=== PATIENT | female | born 1970 | race Caucasian/White ===

== ENCOUNTER 2017-01-10 13:49 | Emergency (ER) | payer OTHER ==
[~2017-01-10] VITALS: Wt 80.0 kg
[~2017-01-10 13:49] MED LIST: HYDR-3498 PO
[2017-01-10] MEDS ORDERED: KETOROLAC 30 MG INJ IV STA (14:38)
[2017-01-10] MEDS ORDERED: SOD CHLORIDE 0.9% 1,000 ML IV STA (14:38)
[2017-01-10 15:11] LABS: BASOPHILS % 0.6 % (0.0-2.0); EOSINOPHILS # 0.1 10^3/ul (0.0-0.5); EOSINOPHILS % 1.7 % (0.0-7.0); HEMATOCRIT 40.6 % (37.0-47.0); HEMOGLOBIN 13.5 g/dl (12.0-16.0); LYMPHOCYTES # 2.2 10^3/ul (0.8-2.9); LYMPHOCYTES % 30.2 % (15.0-51.0); MEAN CORPUSCULAR HEMOGLOBIN 27.7 pg (29.0-33.0); MEAN CORPUSCULAR HGB CONC 33.3 g/dl (32.0-37.0); MEAN CORPUSCULAR VOLUME 83.2 fl (82.0-101.0); MEAN PLATELET VOLUME 9.9 fl (7.4-10.4); MONOCYTE # 0.5 10^3/ul (0.3-0.9); MONOCYTES % 6.2 % (0.0-11.0); NEUTROPHIL # 4.4 10^3/ul (1.6-7.5); NEUTROPHILS % 60.9 % (39.0-77.0); PLATELET COUNT 275 10^3/UL (140-415); RED BLOOD COUNT 4.88 10^6/ul (4.20-5.40); WHITE BLOOD COUNT 7.2 10^3/ul (4.8-10.8)
[2017-01-10 15:18] LABS: ADD UMIC YES; UR ASCORBIC ACID 40 mg/dL (NEGATIVE); UR BILIRUBIN (Dip) NEGATIVE (NEGATIVE); UR BLOOD (Dip) NEGATIVE (NEGATIVE); UR CLARITY SLIGHTLY CLOUDY (CLEAR); UR COLOR YELLOW (YELLOW); UR GLUCOSE (Dip) 2+ mg/dL (NEGATIVE); UR KETONES (Dip) NEGATIVE (NEGATIVE); UR LEUKOCYTE ESTERASE (Dip) 3+ Leu/ul (NEGATIVE); UR NITRITE (Dip) NEGATIVE (NEGATIVE); UR RBC 4 /HPF (0-5); UR SPECIFIC GRAVITY (Dip) 1.009 (1.003-1.030); UR SQUAMOUS EPITHELIAL CELL FEW /HPF (FEW); UR TOTAL PROTEIN (Dip) NEGATIVE (NEGATIVE); UR UROBILINOGEN (Dip) NEGATIVE (NEGATIVE)
[2017-01-10 15:30] LABS: ALBUMIN 4.6 g/dl (3.3-4.9); ALBUMIN/GLOBULIN RATIO 1.58; BILIRUBIN,INDIRECT 0.2 mg/dl (0-1.1); BILIRUBIN,TOTAL 0.2 mg/dl (0.2-1.3); CALCIUM 9.6 mg/dl (8.4-10.2); CREATININE 0.56 mg/dl (0.44-1.00); POTASSIUM 4.2 mmol/L (3.5-5.1); TOTAL PROTEIN 7.5 g/dl (6.1-8.1)
--- NOTE | 2017-01-10 16:55 | RADRPT ---
PROCEDURE: CT Abdomen and Pelvis without contrast. CLINICAL INDICATION: Abdominal pain. TECHNIQUE: CT scan of the abdomen and pelvis without contrast was performed on a multidetector hig h-resolution CT scanner. Coronal and sagittal reformatted images were obtained from the axial [facility] images. Images were reviewed on a high-resolution PACS workstation. The total exam CTDI equals 21. 5 mGy and the total exam DLP equals 1149 mGy-cm. COMPARISON: None. FINDINGS: CT abdomen: The lung bases are clear. The heart size is normal. No pericardial effusion identified. The liver measures 17 cm with low density and focal areas of isodensity, consistent with fatty infil tration and focal fatty sparing.. No liver mass identified. The gallbladder is decompressed and not well evaluated.. There is no intrahepatic or extrahepatic biliary dilatation. The spleen is normal in size. No focal splenic abnormality identified. No gross abnormality of the stomach is identified. The pancreas is unremarkable. The adrenal glands appear normal. The kidneys are unremarkable. There is no evidence of renal mass, renal calculi or hydronephrosis. The aorta is of normal caliber. No adenopathy identified. The bowel and mesentery are unremarkable. The appendix appears normal. CT pelvis: There is a 5 cm cystic structure in the left adnexa. The pelvic sidewalls and inguinal regions are clear. The sigmoid colon and rectum are unremarkable. No adenopathy, free fluid or inflammatory change identified. The osseous structures are unremarkable. No osteolytic or osteoblastic lesion is detected. 1 cm rounded low metallic density is seen in the pelvic cul-de-sac IMPRESSION: 1. No mass, lymphadenopathy, or focal acute inflammatory process is identified. 2. 4 x 5 cm cystic structure in the left adnexa, likely ovarian cyst. This can be further clarifie d with pelvic ultrasound. 3. Hepatomegaly with fatty infiltration of the liver and focal fatty sparing. 4. 1 cm round hollow metallic density in the pelvic cul-de-sac suggests drop metallic clip. Correl ate with surgical history. If there is no surgical history, this could represent soft tissue calcif ication. RPTAT: QQ .Siva Vasquez MD, MD Date Time Electronically viewed and signed by .Siva Vasquez MD, on 01/10/2017 16:55 .Humberto
--- NOTE | 2017-01-10 19:17 | RADRPT ---
PROCEDURE: US Pelvis CLINICAL INDICATION: Pelvic pain. TECHNIQUE: Sonographic evaluation of the pelvis was performed utilizing both transabdominal and tr ansvaginal technique. Curved array transabdominal transducer technique as well as a high frequency endovaginal probe was utilized. Images were reviewed on the high-resolution PACS workstation. COMPARISON: No prior studies are available for comparison. FINDINGS: The uterus is normal in size, echogenicity, and morphology, measuring 10.7 x 8.4 x 7.1 cm. Heterogeneous isoechoic mass is seen in the posterior body of uterus which measures 2.2 x 2.0 x 2.4 cm, likely a fibroid. The uterus is anteverted in normal position. The endometrium measures 7.7 mm in thickness. The normal trilaminar stripe of the endometrium is preserved. The right ovary was not seen. The left ovary measures 5.5 x 4.8 x 5.0 cm. Complex cyst with uniform internal debris is seen in the left ovary, measuring 4.7 x 3.7 x 3.6 cm The ovaries are symmetric in size, echogenicity, and morphology. There are no adnexal masses. There is no significant free fluid in the pelvis. IMPRESSION: 1. Nonvisualization of right ovary. 2. 4.7 cm complex cyst in the left ovary with internal debris and no internal blood flow. Findings suggest hemorrhagic cyst. Follow-up exam in 8-12 weeks is suggested to assess for resolution. 3. 2.4 cm isoechoic mass in the posterior body of uterus, likely a fibroid. RPTAT: HLDM .Siva Vasquez MD, Date Time Electronically viewed and signed by .Siva Vasquez MD, MD on 01/10/2017 19:17 .M/
[2017-01-10] MEDS ORDERED: IBUP-1542 PO (19:29)
[2017-01-10] MEDS ORDERED: TRAM50TA2 PO (19:30)
--- NOTE | 2017-01-10 19:33 | ERD ---
ER Documentation Chief Complaint Date/Time DATE: 01/10/17 TIME: 19:32 Chief Complaint low back pain and abdominal pain for the past month, mild abd distended HPI This is a 46-year-old female that presents to the ER with multiple complaints. Patient states that she has had severe abdominal bloating for the last month. Patient is also complaining of generalized abdominal pain and lower back pain. Patient denies any trauma to the back she denies any urinary bowel incontinence. She denies any urinary frequency or dysuria. Patient does admit to nausea however denies vomiting or diarrhea. Patient denies any fevers or chills. Abdominal pain and back pain are described as severe and constant, throbbing quality. Patient has not tried anything for the pain. Patient denies any chest pain or shortness of breath. ROS 12 point review of systems was done, all negative except per HPI. Medications Home Meds Active Scripts Tramadol HCl (Tramadol HCl) 50 Mg Tablet, 50 MG PO Q4 Y for PAIN, #20 TAB Prov:ALYSIA ENAMORADO 01/10/17 Ibuprofen* (Motrin*) 600 Mg Tab, 600 MG PO Q6, #30 TAB Prov:ALYSIA ENAMORADO 01/10/17 Hydrocodone Bit-Acetaminophen* ([place]*) 5-325 Mg Tab, 1 TAB PO Q4H Y for PAIN, # 20 TAB Prov:VALENTINA MANN PA-C 02/12/15 Allergies Allergies: Coded Allergies: No Known Allergy (Unverified , 06/20/14) PMhx/Soc History of Surgery: Yes () Hx Alcohol Use: No Hx Substance Use: No Hx Tobacco Use: No Smoking Status: Never smoker Physical Exam Vitals Vital Signs Date Time Temp Pulse Resp B/P Pulse Ox O2 Delivery O2 Flow Rate FiO2 01/10/17 13:52 98.5 89 21 140/78 98 Physical Exam Const: [] Head: Atraumatic Eyes: Normal Conjunctiva ENT: Normal External Ears, Nose and Mouth. Neck: Full range of motion..~ No meningismus. Resp: Clear to auscultation bilaterally Cardio: Regular rate and rhythm, no murmurs Abd: Soft, non tender, non distended. Normal bowel sounds Skin: No petechiae or rashes Back: No midline or flank tenderness Ext: No cyanosis, or edema Neur: Awake and alert Psych: Normal Mood and Affect Result Diagram: 01/10/17 1450 01/10/17 1450 Results 24 hrs Laboratory Tests Test 01/10/17 14:50 White Blood Count 7.210^3/ul Red Blood Count 4.8810^6/ul Hemoglobin 13.5g/dl Hematocrit 40.6% Mean Corpuscular Volume 83.2fl Mean Corpuscular Hemoglobin 27.7pg Mean Corpuscular Hemoglobin Concent 33.3g/dl Red Cell Distribution Width 13.0% Platelet Count 78488^3/UL Mean Platelet Volume 9.9fl Neutrophils % 60.9% Lymphocytes % 30.2% Monocytes % 6.2% Eosinophils % 1.7% Basophils % 0.6% Nucleated Red Blood Cells % 0.0/100WBC Neutrophils # 4.410^3/ul Lymphocytes # 2.210^3/ul Monocytes # 0.510^3/ul Eosinophils # 0.110^3/ul Basophils # 0.010^3/ul Nucleated Red Blood Cells # 0.010^3/ul Urine Color YELLOW Urine Clarity SLIGHTLY CLOUDY Urine pH 8.0 Urine Specific [place] 1.009 Urine Ketones NEGATIVEmg/dL Urine Nitrite NEGATIVEmg/dL Urine Bilirubin NEGATIVEmg/dL Urine Urobilinogen NEGATIVEmg/dL Urine Leukocyte Esterase 3+Iain/ul Urine Microscopic RBC 4/HPF Urine Microscopic WBC 6/HPF Urine Squamous Epithelial Cells FEW/HPF Urine Hemoglobin NEGATIVEmg/dL Urine Glucose 2+mg/dL Urine Total Protein NEGATIVEmg/dl Sodium Level 141mmol/L Potassium Level 4.2mmol/L Chloride Level 100mmol/L Carbon Dioxide Level 25mmol/L Anion Gap 20 Blood Urea Nitrogen 9mg/dl Creatinine 0.56mg/dl Glucose Level 153mg/dl Calcium Level 9.6mg/dl Total Bilirubin 0.2mg/dl Direct Bilirubin 0.00mg/dl Indirect Bilirubin 0.2mg/dl Aspartate Amino Transf (AST/SGOT) 35IU/L Alanine Aminotransferase (ALT/SGPT) 61IU/L Alkaline Phosphatase 76IU/L Total Protein 7.5g/dl Albumin 4.6g/dl Globulin 2.90g/dl Albumin/Globulin Ratio 1.58 Lipase 71U/L Current Medications Medications (Trade) Dose Ordered Sig/Tasneem Route PRN Reason Start Time Stop Time Status Last Admin Dose Admin Sodium Chloride (NS) 1,000 ml @ 1,000 mls/hr Q1H STAT IV 01/10/17 14:38 01/10/17 15:37 DC 01/10/17 14:54 Ketorolac Tromethamine (Toradol) 30 mg ONCE STAT IV 01/10/17 14:38 01/10/17 14:39 DC 01/10/17 14:54 [place] [id number] Radiology Main Line: [phone] DIAGNOSTIC IMAGING REPORT Patient: ALMA ANTHONY : 1970 Age: 46 Sex: F MR #: [id number] DOS: 01/10/17 0000 Ordering MD: ALYSIA ENAMORADO PA-C Location: [facility] Room/Bed: PROCEDURE: US Pelvis CLINICAL INDICATION: Pelvic pain. TECHNIQUE: Sonographic evaluation of the pelvis was performed utilizing both transabdominal and transvaginal technique. Curved array transabdominal transducer technique as well as a high frequency endovaginal probe was utilized. Images were reviewed on the high-resolution PACS workstation. COMPARISON: No prior studies are available for comparison. FINDINGS: The uterus is normal in size, echogenicity, and morphology, measuring 10.7 x 8.4 x 7.1 cm. Heterogeneous isoechoic mass is seen in the posterior body of uterus which measures 2.2 x 2.0 x 2.4 cm, likely a fibroid. The uterus is anteverted in normal position. The endometrium measures 7.7 mm in thickness. The normal trilaminar stripe of the endometrium is preserved. The right ovary was not seen. The left ovary measures 5.5 x 4.8 x 5.0 cm. Complex cyst with uniform internal debris is seen in the left ovary, measuring 4.7 x 3.7 x 3.6 cm The ovaries are symmetric in size, echogenicity, and morphology. There are no adnexal masses. There is no significant free fluid in the pelvis. IMPRESSION: 1. Nonvisualization of right ovary. 2. 4.7 cm complex cyst in the left ovary with internal debris and no internal blood flow. Findings suggest hemorrhagic cyst. Follow-up exam in 8-12 weeks is suggested to assess for resolution. 3. 2.4 cm isoechoic mass in the posterior body of uterus, likely a fibroid. RPTAT: HLDM .Siva Vasquez MD, MD Date Time Electronically viewed and signed by .Siva Vasquez MD, MD on 01/10/2017 19: 17 .M/ CC: ALYSIA ENAMORADO Procedures/MDM Differential Diagnosis: GERD, gastritis, peptic ulcer disease, pancreatitis, cholecystitis, choledocholithiasis, biliary colic, cholangitis, Unmo-Ycma-Vsgbgc , ACS/SD, Pnuemonia. At this time etiology of patient's abdominal bloating, patient did have an ovarian cyst, I advised patient to follow-up on this as ovarian malignancy can cause abdominal bloating. At this time there is no evidence of ovarian torsion. Patient's blood work was negative for leukocytosis , transaminitis, pancreatitis, electrolyte imbalance. Patient felt significantly better after Toradol in the ER. She was also found to have fibroids which may also contribute to patient's abdominal pain. There is no evidence of urinary tract infection and patient is asymptomatic. Suspicion for pyelonephritis is low. Patient is afebrile and well-appearing and does not have a history of fevers or chills suspicion for sepsis is low. In regards to patient's lower back pain Differential Diagnosis includes but is not limited to back strain, vertebral fracture, epidural abscess, cauda equina, herniated disc , AAA rupture, kidney stones, UTI, pyelonephritis. Patient likely acute on chronic back pain going on for the last month. She does not have any history of trauma and she is neurovascularly intact and has full range of motion of bilateral lower extremities. Patient does not have history of urinary bowel incontinence or saddle like anesthesia I doubt cauda equina. Patient is to follow-up with her primary care doctor within 1-2 days and seen OB as soon as possible. I shared my medical decision making with the patient she understands and agrees with plan. She should return to ER sooner if symptoms worsen. Departure Diagnosis: Primary Impression: Fibroids Additional Impression: Ovarian cyst Condition: Stable Patient Instructions: Ovarian Cyst Additional Instructions: Call your primary care doctor TOMORROW for an appointment during the next 1-2 days.See the doctor sooner or return here if your condition worsens before your appointment time. ALYSIA ENAMORADO Jan 10, 2017 19:33
== END 2017-01-10 19:38 | disposition home or self-care (01) ==
LOC: FTE 13:49
DX: D25.9 Leiomyoma of uterus, unspecified (principal); N83.202 Unspecified ovarian cyst, left side; R10.2 Pelvic and perineal pain
CPT/HCPCS: 36415; 74176; 76830; 76856; 80053; 81001; 83690; 85025; 96374; J1885; J7030; Z7502

== ENCOUNTER 2017-02-28 18:29 | Emergency (ER) | payer OTHER ==
[~2017-02-28] VITALS: Ht 160 cm; Wt 89.5 kg
[~2017-02-28 18:29] MED LIST changes: +IBUP-1542 PO; +TRAM50TA2 PO
[2017-02-28 18:32] VITALS: Ht 160 cm; Wt 89.5 kg
[2017-02-28 19:33] LABS: URINE BLOOD (Dip) POC 1+ (NEGATIVE)
[2017-02-28 20:09] LABS: ADD UMIC YES; UR ASCORBIC ACID NEGATIVE (NEGATIVE); UR BACTERIA FEW /HPF (NONE SEEN); UR BILIRUBIN (Dip) NEGATIVE (NEGATIVE); UR BLOOD (Dip) 1+ mg/dL (NEGATIVE); UR CLARITY CLEAR (CLEAR); UR COLOR STRAW (YELLOW); UR GLUCOSE (Dip) 3+ mg/dL (NEGATIVE); UR KETONES (Dip) NEGATIVE (NEGATIVE); UR LEUKOCYTE ESTERASE (Dip) NEGATIVE Leu/ul (NEGATIVE); UR NITRITE (Dip) NEGATIVE (NEGATIVE); UR RBC 1 /HPF (0-5); UR SPECIFIC GRAVITY (Dip) 1.002 (1.003-1.030); UR TOTAL PROTEIN (Dip) NEGATIVE (NEGATIVE); UR UROBILINOGEN (Dip) NEGATIVE (NEGATIVE)
[2017-02-28 20:58] VITALS: RESP 20; TEMP 98.2
--- NOTE | 2017-02-28 21:46 | ERD ---
ER Documentation Chief Complaint Date/Time DATE: 02/28/17 TIME: 21:44 Chief Complaint painful urination x 2 days, back pain HPI Patient is a 46-year-old female who presents to the ED with multiple complaints. Patient states that she has had dysuria and urgency and frequency for 2 days. She also complains of 5 years of chronic low back pain. She denies abdominal pain, nausea, vomiting or diarrhea. Patient is requesting an MRI of her low back. Patient also complains of 6 months of on and off sweats. And mild fatigue. Denies new onset of trauma or back pain. Denies new onset of symptoms besides urgency and frequency. She has had UTIs in the past. Denies leg pain or leg swelling, denies Chest pain or cough or shortness of breath. ROS All systems reviewed and are negative except as per history of present illness. Medications Home Meds Active Scripts Tramadol HCl (Tramadol HCl) 50 Mg Tablet, 50 MG PO Q4 Y for PAIN, #20 TAB Prov:ALYSIA ENAMORADO 01/10/17 Ibuprofen* (Motrin*) 600 Mg Tab, 600 MG PO Q6, #30 TAB Prov:ALYSIA ENAMORADO 01/10/17 Hydrocodone Bit-Acetaminophen* ([place]*) 5-325 Mg Tab, 1 TAB PO Q4H Y for PAIN, # 20 TAB Prov:VALENTINA MANN PA-C 02/12/15 Allergies Allergies: Coded Allergies: No Known Allergy (Unverified , 06/20/14) PMhx/Soc Medical and Surgical Hx: pt denies Medical Hx History of Surgery: Yes () Anesthesia Reaction: No Hx Neurological Disorder: No Hx Respiratory Disorders: No Hx Cardiac Disorders: No Hx Psychiatric Problems: No Hx Alcohol Use: No Hx Substance Use: No Hx Tobacco Use: No Smoking Status: Never smoker FmHx Family History: No coronary disease, No diabetes, No other Physical Exam Vitals Vital Signs Date Time Temp Pulse Resp B/P Pulse Ox O2 Delivery O2 Flow Rate FiO2 02/28/17 20:58 98.2 20 100 02/28/17 18:32 98.2 99 20 139/87 100 Physical Exam GENERAL: Well-developed, well-nourished female. Appears in no acute distress. HEAD: Normocephalic, atraumatic. EYES: Pupils are equally reactive bilaterally. EOMs grossly intact. No conjunctival erythema. ENT: Moist mucous membranes. No uvula deviation. No kissing tonsils. No exudates. NECK: Supple. No lymphadenopathy or thyromegaly. No meningismus. negative kernig. negative brudinski. LUNG: Clear to auscultation bilaterally. No rhonchi, wheezing, rales or coarse breath sounds. HEART: Regular rate and rhythm. No murmurs, rubs or gallops. ABDOMEN: No scars, ecchymosis or rashes noted. Soft, nontender, and nondistended. Positive bowel sounds in all four quadrants. No rebound tenderness , no guarding. (-) McBurneys point tenderness. No CVA tenderness. BACK: No midline tenderness. Extremities: Equal pulses bilaterally. No peripheral clubbing, cyanosis or edema. No unilateral leg swelling. NEUROLOGIC: Alert and oriented. Moving all four extremities. 5/5 strength in all extremities. Normal speech. Steady gait. SKIN: Normal color. Warm and dry. No rashes or lesions. Capillary refill < 2 seconds Results 24 hrs Laboratory Tests Test 02/28/17 19:20 02/28/17 19:40 Urine Color STRAW Urine Clarity CLEAR Urine pH 7.0 Urine Specific [place] 1.002 Urine Ketones NEGATIVEmg/dL Urine Nitrite NEGATIVEmg/dL Urine Bilirubin NEGATIVEmg/dL Urine Urobilinogen NEGATIVEmg/dL Urine Leukocyte Esterase NEGATIVELeu/ul Urine Microscopic RBC 1/HPF Urine Microscopic WBC 1/HPF Urine Bacteria FEW/HPF Urine Hemoglobin 1+mg/dL Urine Glucose 3+mg/dL Urine Total Protein NEGATIVEmg/dl Bedside Urine pH (LAB) 6.0 Bedside Urine Protein (LAB) Negative Bedside Urine Glucose (UA) 0.25% Bedside Urine Ketones (LAB) Negative Bedside Urine Blood 1+ Bedside Urine Nitrite (LAB) Negative Bedside Urine Leukocyte Esterase (L Negative Procedures/MDM ER COURSE: I kept the patient and/or family informed of laboratory and diagnostic imaging results throughout the emergency room course. MEDICAL DECISION MAKING: This is a 46-year-old female who presents with dysuria and urgency 2 days. Vital signs were reviewed. Patient is afebrile. Patient is not hypoxic. She is nontoxic or ill-appearing. Patient's urinalysis does not show signs of infection she does not have leukocytes or nitrates. At this point I will not be treating the patient with antibiotics I have low suspicion for cystitis. Advised patient to follow-up with her primary care provider for her chronic issues. Copy of laboratory studies given to patient. Low suspicion for ovarian torsion, PID, tuboovarian abscess, ectopic , bowel obstruction , pyelonephritis, UTI, appendicitis, cervicitis, septic , molar , HELLP syndrome, preeclampsia, eclampsia, placenta previa, placenta abruptia. DISCHARGE: At this time, patient is stable for discharge and outpatient management with no new complaints during the ER course. Patient was sent home with copy of laboratory studies. Patient will be discharged home with instructions to recheck for new or worsening symptoms such as fever, nausea, weakness, LOC and to follow up with primary care in the next 1-2 days. Patient was advised to return to the ER for any new or worsening symptoms. Plan was discussed and patient and/or family understands and agrees. Home instructions were given. Departure Diagnosis: Primary Impression: Urinary frequency Condition: Stable Patient Instructions: Dysuria, Uncertain Cause (Adult) Additional Instructions: Call your primary care doctor TOMORROW for an appointment during the next 1-2 days.See the doctor sooner or return here if your condition worsens before your appointment time. NEVA LYNCH PA-C Feb 28, 2017 21:46
== END 2017-02-28 20:59 | disposition home or self-care (01) ==
LOC: FTE 18:29
DX: R35.0 Frequency of micturition (principal)
CPT/HCPCS: 81001; Z7502; 81003; 99283

== ENCOUNTER 2017-04-30 19:29 | Emergency (ER) | payer OTHER ==
[~2017-04-30] VITALS: Ht 154.9 cm; Wt 87.6 kg
[2017-04-30 19:40] VITALS: Ht 154.9 cm; Wt 87.6 kg
[2017-04-30] MEDS ORDERED: ONDANSETRON 4 MG INJ IV STA (21:27)
[2017-04-30] MEDS ORDERED: SOD CHLORIDE 0.9% 1,000 ML IV STA (21:27)
[2017-04-30] MEDS ORDERED: KETOROLAC 30 MG INJ IV STA (21:27)
[2017-04-30 22:27] LABS: BASOPHIL # 0.1 10^3/ul (0.0-0.1); BASOPHILS % 0.6 % (0.0-2.0); EOSINOPHILS # 0.1 10^3/ul (0.0-0.5); EOSINOPHILS % 1.1 % (0.0-7.0); HEMATOCRIT 42.3 % (37.0-47.0); LYMPHOCYTES # 3.6 10^3/ul (0.8-2.9); MEAN CORPUSCULAR HEMOGLOBIN 27.9 pg (29.0-33.0); MEAN CORPUSCULAR HGB CONC 33.1 g/dl (32.0-37.0); MEAN CORPUSCULAR VOLUME 84.4 fl (82.0-101.0); MEAN PLATELET VOLUME 9.4 fl (7.4-10.4); MONOCYTE # 0.5 10^3/ul (0.3-0.9); MONOCYTES % 5.6 % (0.0-11.0); NEUTROPHIL # 4.1 10^3/ul (1.6-7.5); NEUTROPHILS % 49.5 % (39.0-77.0); PLATELET COUNT 284 10^3/UL (140-415); RED BLOOD COUNT 5.01 10^6/ul (4.20-5.40); RED CELL DISTRIBUTION WIDTH 12.7 % (11.5-14.5); WHITE BLOOD COUNT 8.3 10^3/ul (4.8-10.8)
[2017-04-30 22:41] LABS: ADD UMIC YES; UR ASCORBIC ACID NEGATIVE (NEGATIVE); UR BACTERIA FEW /HPF (NONE SEEN); UR BILIRUBIN (Dip) NEGATIVE (NEGATIVE); UR BLOOD (Dip) 1+ mg/dL (NEGATIVE); UR CLARITY SLIGHTLY CLOUDY (CLEAR); UR COLOR YELLOW (YELLOW); UR GLUCOSE (Dip) 1+ mg/dL (NEGATIVE); UR KETONES (Dip) TRACE mg/dL (NEGATIVE); UR LEUKOCYTE ESTERASE (Dip) TRACE Leu/ul (NEGATIVE); UR NITRITE (Dip) NEGATIVE (NEGATIVE); UR RBC 1 /HPF (0-5); UR SPECIFIC GRAVITY (Dip) 1.012 (1.003-1.030); UR SQUAMOUS EPITHELIAL CELL FEW /HPF (FEW); UR TOTAL PROTEIN (Dip) NEGATIVE (NEGATIVE); UR UROBILINOGEN (Dip) NEGATIVE (NEGATIVE)
[2017-04-30] MEDS ORDERED: morphine 4 MG/ML VIAL IV STA (22:45)
[2017-04-30 22:51] LABS: ALBUMIN 4.9 g/dl (3.3-4.9); ALBUMIN/GLOBULIN RATIO 1.58; BILIRUBIN,INDIRECT 0.1 mg/dl (0-1.1); BILIRUBIN,TOTAL 0.1 mg/dl (0.2-1.3); CALCIUM 9.6 mg/dl (8.4-10.2); CREATININE 0.93 mg/dl (0.44-1.00); POTASSIUM 4.1 mmol/L (3.5-5.1)
--- NOTE | 2017-04-30 23:10 | RADRPT ---
PROCEDURE: CT abdomen and pelvis without intravenous contrast. CLINICAL INDICATION: Pain. TECHNIQUE: CT of the abdomen/pelvis was performed utilizing axial images with reconstructions in s agittal and coronal planes. The administered radiation dose is CTDI 21 mGy, DLP 1134 mGy-cm. One or more of the following dose reduction techniques were used: automated exposure control, adjustment of the mA and/or kV according to patient size and/or use of iterative reconstruction technique. DICOM images are available. COMPARISON: 01/10/2017 FINDINGS: Visualized Chest: The visualized lung bases are clear. Abdomen: The spleen, pancreas, gallbladder,and adrenal glands are unremarkable. The liver is markedly, dif fusely decreased in attenuation, compatible with hepatic steatosis. The kidneys are without hydronephrosis. No definite urinary calculi are seen. There is no evidence of bowel obstruction. The appendix is normal. No intra-abdominal free air is seen. There is no evidence of intra-abdominal adenopathy or free fluid. Pelvis: There is no evidence of pelvic adenopathy. The uterus and ovaries are without enlargement. The uri nary bladder is unremarkable. There is no pelvic free fluid. Osseous structures: Unremarkable. IMPRESSION: No acute findings. Hepatic steatosis. RPTAT: HIKT .Isael Gallagher MD, MD Date Time Electronically viewed and signed by .Isael Gallagher MD, on 04/30/2017 23:10 .T/
--- NOTE | 2017-05-01 00:59 | RADRPT ---
PROCEDURE: ULTRASOUND EVALUATION OF THE FEMALE PELVIS: CLINICAL INDICATION: 46-year of age, female. Pelvic pain . TECHNIQUE: Real-time sonographic images of the pelvis were obtained transabdominally and transvagina lly utilizing [place] scale, color, and Doppler imaging. COMPARISON: Pelvic ultrasound December 11, [address] abdomen pelvis April 30, 2017 FINDINGS: LMP: April 17, 2017 Uterus: Appearance: 2.6 cm mildly exophytic fibroid posterior uterine body is similar to prior exam. Myometr ium is otherwise normal. Position: Anteverted Size: 10 x 4.8 x 6.2 cm. (Volume 155 mL) Endometrial stripe: 0.3 cm . Echogenic focus in the endometrium is likely from prior intervention. Right ovary and adnexa: Right ovary is not visualized. Negative for evidence of a right adnexal mass. Left ovary and adnexa: Size: 2.9 x 1.7 x 2 cm. (Volume 4.9 mL) Appearance: 1 cm echogenic cyst likely a hemorrhagic follicle. Ovarian stroma is otherwise normal. A rterial flow present. Free fluid: None. IMPRESSION: 1. 2.6 cm uterine fibroid is similar to prior exam. 2. Small hemorrhagic follicle in the left ovary has decreased in size since prior ultrasound perform ed January 10, 2017 and is likely physiologic. 3. Right ovary is not visualized. Negative for evidence of a right adnexal mass. RPTAT: HCTS Physician Kareem Date Time Electronically viewed and signed by Physician Kareem on 05/01/2017 00:59 /
[2017-05-01] MEDS ORDERED: ONDA4TAB14 PO (01:10)
[2017-05-01] MEDS ORDERED: IBUP-1542 PO (01:10)
--- NOTE | 2017-05-01 01:20 | ERD ---
ER Documentation Chief Complaint Chief Complaint bib self, cc: cc: abdominal pain hx of overian cyst HPI Is a 46-year-old female with a history of hypertension and ovarian cyst who presents to the ED for concerns of bilateral pelvic pain 2 days. Patient states the pain is constant. Patient reports taking ibuprofen with no relief of symptoms. Patient reports nausea and vomiting 3, nonbloody nonbilious. Patient also states she has had diarrhea now for a week, nonbloody, nonmucousy. Patient denies any fevers or chills. Patient does report dysuria and burning pain with urination. Patient denies any frequency, urgency or hematuria. Patient denies any chest pain, shortness of breath, loss of consciousness. ROS All systems reviewed and are negative except as per history of present illness. Medications Home Meds Active Scripts Ondansetron (Ondansetron Odt) 4 Mg Tab.rapdis, 4 MG PO Q6H Y for NAUSEA AND/OR VOMITING, #10 TAB Prov:DEMETRIO ROQUE PA-C 05/01/17 Ibuprofen* (Motrin*) 600 Mg Tab, 600 MG PO Q6, #30 TAB Prov:DEMETRIO ROQUE PA-C 05/01/17 Tramadol HCl (Tramadol HCl) 50 Mg Tablet, 50 MG PO Q4 Y for PAIN, #20 TAB Prov:ALYSIA ENAMORADO 01/10/17 Ibuprofen* (Motrin*) 600 Mg Tab, 600 MG PO Q6, #30 TAB Prov:ALYSIA ENAMORADO 01/10/17 Hydrocodone Bit-Acetaminophen* ([place]*) 5-325 Mg Tab, 1 TAB PO Q4H Y for PAIN, # 20 TAB Prov:VALENTINA MANN PA-C 02/12/15 Allergies Allergies: Coded Allergies: No Known Allergy (Unverified , 06/20/14) PMhx/Soc History of Surgery: Yes () Anesthesia Reaction: No Hx Neurological Disorder: No Hx Respiratory Disorders: No Hx Cardiac Disorders: No Hx Psychiatric Problems: No Hx Alcohol Use: No Hx Substance Use: No Hx Tobacco Use: No Smoking Status: Never smoker Physical Exam Vitals Vital Signs Date Time Temp Pulse Resp B/P Pulse Ox O2 Delivery O2 Flow Rate FiO2 04/30/17 19:40 98.6 85 18 146/95 100 Physical Exam GENERAL: Well-developed, well-nourished female. Appears in no acute distress. HEAD: Normocephalic, atraumatic. EYES: Pupils are equally reactive bilaterally. EOMs grossly intact. No conjunctival erythema. ENT: Moist mucous membranes. No uvula deviation. No kissing tonsils. NECK: Supple. No meningismus. Normal range of motion of the neck. LUNG: Clear to auscultation bilaterally. No rhonchi, wheezing, rales or coarse breath sounds. HEART: Regular rate and rhythm. No murmurs, rubs or gallops. ABDOMEN: Soft, and nondistended. Tender to palpation bilateral lower abdominal quadrants. Positive bowel sounds in all four quadrants. No rebound tenderness, no guarding. (-) McBurney's point tenderness. No CVA tenderness. BACK: No midline tenderness. EXTREMITIES: Equal pulses bilaterally. No peripheral clubbing, cyanosis or edema. No unilateral leg swelling. NEUROLOGIC: Alert and oriented. Moving all four extremities without any difficulty. Normal speech. Steady gait. SKIN: Normal color. Warm and dry. No rashes or lesions. Result Diagram: 04/30/17221904/30/172219 Results 24 hrs Laboratory Tests Test 04/30/17 22:05 04/30/17 22:20 Urine Color YELLOW Urine Clarity SLIGHTLY CLOUDY Urine pH 5.0 Urine Specific [place] 1.012 Urine Ketones TRACEmg/dL Urine Nitrite NEGATIVEmg/dL Urine Bilirubin NEGATIVEmg/dL Urine Urobilinogen NEGATIVEmg/dL Urine Leukocyte Esterase TRACELeu/ul Urine Microscopic RBC 1/HPF Urine Microscopic WBC 4/HPF Urine Squamous Epithelial Cells FEW/HPF Urine Bacteria FEW/HPF Urine Hemoglobin 1+mg/dL Urine Glucose 1+mg/dL Urine Total Protein NEGATIVEmg/dl White Blood Count 8.310^3/ul Red Blood Count 5.0110^6/ul Hemoglobin 14.0g/dl Hematocrit 42.3% Mean Corpuscular Volume 84.4fl Mean Corpuscular Hemoglobin 27.9pg Mean Corpuscular Hemoglobin Concent 33.1g/dl Red Cell Distribution Width 12.7% Platelet Count 62372^3/UL Mean Platelet Volume 9.4fl Neutrophils % 49.5% Lymphocytes % 43.0% Monocytes % 5.6% Eosinophils % 1.1% Basophils % 0.6% Nucleated Red Blood Cells % 0.0/100WBC Neutrophils # 4.110^3/ul Lymphocytes # 3.610^3/ul Monocytes # 0.510^3/ul Eosinophils # 0.110^3/ul Basophils # 0.110^3/ul Nucleated Red Blood Cells # 0.010^3/ul Sodium Level 142mmol/L Potassium Level 4.1mmol/L Chloride Level 102mmol/L Carbon Dioxide Level 25mmol/L Anion Gap 19 Blood Urea Nitrogen 10mg/dl Creatinine 0.93mg/dl Glucose Level 95mg/dl Calcium Level 9.6mg/dl Total Bilirubin 0.1mg/dl Direct Bilirubin 0.00mg/dl Indirect Bilirubin 0.1mg/dl Aspartate Amino Transf (AST/SGOT) 47IU/L Alanine Aminotransferase (ALT/SGPT) 87IU/L Alkaline Phosphatase 78IU/L Total Protein 8.0g/dl Albumin 4.9g/dl Globulin 3.10g/dl Albumin/Globulin Ratio 1.58 Lipase 116U/L Current Medications Medications (Trade) Dose Ordered Sig/Tasneem Route PRN Reason Start Time Stop Time Status Last Admin Dose Admin Sodium Chloride (NS) 1,000 ml @ 1,000 mls/hr Q1H STAT IV 04/30/17 21:27 04/30/17 22:26 DC 04/30/17 22:11 Ondansetron HCl (Zofran Inj) 4 mg ONCE STAT IV 04/30/17 21:27 04/30/17 21:29 DC 04/30/17 22:11 Ketorolac Tromethamine (Toradol) 30 mg ONCE STAT IV 04/30/17 21:27 04/30/17 21:29 DC 04/30/17 22:11 Morphine Sulfate (morphine) 4 mg ONCE STAT IV 04/30/17 22:45 04/30/17 22:46 DC 04/30/17 22:50 Procedures/MDM ED COURSE: The patient was stable throughout ED course. I kept the patient and/or family informed of laboratory and diagnostic imaging results throughout the ED course. DIAGNOSTIC IMAGING: Read by radiologist. Patient: ALMA ANTHONY : 1970 Age: 46 Sex: F MR #: [id number] DOS: 04/30/172126 Ordering MD: DEMETRIO ROQUE PA-C Location: [facility] Room/Bed: PROCEDURE: CT abdomen and pelvis without intravenous contrast. CLINICAL INDICATION: Pain. TECHNIQUE: CT of the abdomen/pelvis was performed utilizing axial images with reconstructions in sagittal and coronal planes. The administered radiation dose is CTDI 21 mGy, DLP 1134 mGy-cm. One or more of the following dose reduction techniques were used: automated exposure control, adjustment of the mA and/or kV according to patient size and/or use of iterative reconstruction technique. DICOM images are available. COMPARISON: 01/10/2017 FINDINGS: Visualized Chest: The visualized lung bases are clear. Abdomen: The spleen, pancreas, gallbladder,and adrenal glands are unremarkable. The liver is markedly, diffusely decreased in attenuation, compatible with hepatic steatosis. The kidneys are without hydronephrosis. No definite urinary calculi are seen. There is no evidence of bowel obstruction. The appendix is normal. No intra- abdominal free air is seen. There is no evidence of intra-abdominal adenopathy or free fluid. Pelvis: There is no evidence of pelvic adenopathy. The uterus and ovaries are without enlargement. The urinary bladder is unremarkable. There is no pelvic free fluid. Osseous structures: Unremarkable. IMPRESSION: No acute findings. Hepatic steatosis. RPTAT: HIKT .Isael Gallagher MD, MD Date Time Electronically viewed and signed by .Isael Gallagher MD, on 04/30/2017 23:10 .T/ CC: DEMETRIO ROQUE PA-C Patient: ALMA ANTHONY : 1970 Age: 46 Sex: F MR #: [id number] DOS: 04/30/172126 Ordering MD: DEMETRIO ROQUE PA-C Location: [facility] Room/Bed: PROCEDURE: ULTRASOUND EVALUATION OF THE FEMALE PELVIS: CLINICAL INDICATION: 46-year of age, female. Pelvic pain . TECHNIQUE: Real-time sonographic images of the pelvis were obtained transabdominally and transvaginally utilizing washing[place] scale, color, and Doppler imaging. COMPARISON: Pelvic ultrasound December 11, [address] abdomen pelvis April FINDINGS: LMP: April 17, 2017 Uterus: Appearance: 2.6 cm mildly exophytic fibroid posterior uterine body is similar to prior exam. Myometrium is otherwise normal. Position: Anteverted Size: 10 x 4.8 x 6.2 cm. (Volume 155 mL) Endometrial stripe: 0.3 cm . Echogenic focus in the endometrium is likely from prior intervention. Right ovary and adnexa: Right ovary is not visualized. Negative for evidence of a right adnexal mass. Left ovary and adnexa: Size: 2.9 x 1.7 x 2 cm. (Volume 4.9 mL) Appearance: 1 cm echogenic cyst likely a hemorrhagic follicle. Ovarian stroma is otherwise normal. Arterial flow present. Free fluid: None. IMPRESSION: 1. 2.6 cm uterine fibroid is similar to prior exam. 2. Small hemorrhagic follicle in the left ovary has decreased in size since prior ultrasound performed January 10, 2017 and is likely physiologic. 3. Right ovary is not visualized. Negative for evidence of a right adnexal mass. RPTAT: HCTS Physician Kareem Date Time Electronically viewed and signed by Physician Kareem on 05/01/2017 00: 59 CS/ CC: DEMETRIO ROQUE PA-C MEDICATIONS GIVEN: Zofran, Toradol, morphine Patient tolerated medication well with no adverse reactions. Patient reported improvement in pain. MEDICAL DECISION MAKING: This is a 46-year-old female presents to the ED for concerns of bilateral lower abdominal pain and nausea and vomiting 2 days.. Vital signs were reviewed. Patient is afebrile. CBC showed no evidence of systemic infection or severe anemia. CMP showed no evidence of electrolyte abnormalities, severe acidosis, alkalosis , renal failure. Mild elevation in AST and ALT were noted. Lipase showed no evidence of acute pancreatitis. UA showed no evidence of acute infection or hematuria. Low suspicion for UTI, pyelonephritis or nephrolithiasis. Urine test was negative. Pelvic US showed 1. 2.6 cm uterine fibroid is similar to prior exam. 2. Small hemorrhagic follicle in the left ovary has decreased in size since prior ultrasound performed January 10, 2017 and is likely physiologic. 3. Right ovary is not visualized. Negative for evidence of a right adnexal mass. CT abdomen and pelvis showed No acute findings. Hepatic steatosis. At this time, patient's presentation is most consistent with fibroids, ovarian cyst and hepatic steatosis. Low suspicion for DKA, bowel perforation, cholecystitis, choledocholithiasis, ascending cholangitis, hepatic abscess, pancreatitis, splenic rupture, diverticulitis, UTI, pyelonephritis, nephrolithiasis, appendicitis, constipation, , ectopic , PID, ovarian torsion or tubo-ovarian abscess. PRESCRIPTIONS: Ibuprofen, Zofran DISCHARGE: At this time, patient is stable for discharge and outpatient management. Patient was given a copy of all imaging studies and blood work obtained today. 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 I have instructed the patient to follow-up with his/ her primary care physician in 1-2 days. I have instructed the patient to promptly return to the ER at any time for any new or worsening symptoms including increased pain, nausea, vomiting, diarrhea, fever, weakness or LOC. The patient and/or family expressed understanding of and agreement with this plan. All questions were answered. Home care instructions were provided. \\Disclaimer: Inadvertent spelling and grammatical errors are likely due to EHR/ dictation software use and do not reflect on the overall quality of patient care. Also, please note that the electronic time recorded on this note does not necessarily reflect the actual time of the patient encounter. Departure Diagnosis: Primary Impression: Uterine fibroid Uterine leiomyoma location: unspecified location Qualified Code: D25.9 - Uterine leiomyoma, unspecified location Additional Impressions: Hemorrhagic cyst of left ovary Hepatic steatosis Condition: Stable Patient Instructions: What Are Fibroids?, What Are Ovarian Cysts? Referrals: COMMUNITY CLINICS YOU HAVE RECEIVED A MEDICAL SCREENING EXAM AND THE RESULTS INDICATE THAT YOU DO NOT HAVE A CONDITION THAT REQUIRES URGENT TREATMENT IN THE EMERGENCY DEPARTMENT. FURTHER EVALUATION AND TREATMENT OF YOUR CONDITION CAN WAIT UNTIL YOU ARE SEEN IN YOUR DOCTORS OFFICE WITHIN THE NEXT 1-2 DAYS. IT IS YOUR RESPONSIBILITY TO MAKE AN APPOINTMENT FOR FOLOW-UP CARE. IF YOU HAVE A PRIMARY DOCTOR --you should call your primary doctor and schedule an appointment IF YOU DO NOT HAVE A PRIMARY DOCTOR YOU CAN CALL OUR PHYSICIAN REFERRAL HOTLINE AT IF YOU CAN NOT AFFORD TO SEE A PHYSICIAN YOU CAN CHOSE FROM THE FOLLOWING [facility] CLINICS [facility] [address] [facility] [address] [facility] [address] [facility] [address] [facility] [address] [facility]. [facility] [address] [facility]. [facility] YOU HAVE RECEIVED A MEDICAL SCREENING EXAM AND THE RESULTS INDICATE THAT YOU DO NOT HAVE A CONDITION THAT REQUIRES URGENT TREATMENT IN THE EMERGENCY DEPARTMENT. FURTHER EVALUATION AND TREATMENT OF YOUR CONDITION CAN WAIT UNTIL YOU ARE SEEN IN YOUR DOCTORS OFFICE WITHIN THE NEXT 1-2 DAYS. IT IS YOUR RESPONSIBILITY TO MAKE AN APPOINTMENT FOR FOLOW-UP CARE. IF YOU HAVE A PRIMARY DOCTOR --you should call your primary doctor and schedule and appointment IF YOU DO NOT HAVE A PRIMARY DOCTOR YOU CAN CALL OUR PHYSICIAN REFERRAL HOTLINE AT . IF YOU CAN NOT AFFORD TO SEE A PHYSICIAN YOU CAN CHOSE FROM THE FOLLOWING [facility] INSTITUTIONS: [facility] [address] [place] [address] [facility] [address] [place] [address] [facility] [address] [place] [address] [employer] SALES REPRESENTATIVE [place] [address] [facility] [address] [place] [address] OFFICE FAX YOSEF CARRIZALES [address] [place] [address] [address] OWUSU [place] [address] [place], [place] [id number] [address] GAITAN [facility] [address] [facility], [address], [place] [address] MUNA FLORIANOZ [address] [facility], [place] [address] [facility] [address] [place] [address] [phone] [facility], [facility] [address] - [address] MCLAUGHLIN NADYA [address], [place] [facility] [address] [address] [place], [place] [address] [facility]. [address], [facility] [place] [address] [address] LOPEZ [facility] [address] [place], [place] [id number] Additional Instructions: Call your primary care doctor/ OBGYN TOMORROW for an appointment during the next 1-2 days.See the doctor sooner or return here if your condition worsens before your appointment time. DEMETRIO ROQUE PA-C May 01, 2017 01:20
[2017-05-01 01:27] VITALS: BP 139/81; PULSE 90; RESP 18; TEMP 98.6
== END 2017-05-01 01:27 | disposition home or self-care (01) ==
LOC: FTE 19:29
DX: D25.9 Leiomyoma of uterus, unspecified (principal); N83.202 Unspecified ovarian cyst, left side; K76.0 Fatty (change of) liver, not elsewhere classified; I10 Essential (primary) hypertension
CPT/HCPCS: 74176; 76830; 76856; 80053; 81001; 83690; 85025; 96374; 96375; J1885; J2270; J2405; J7030; Z7502

== ENCOUNTER 2018-12-29 20:53 | Emergency (ER) | payer OTHER ==
[~2018-12-29] VITALS: Ht 157.5 cm; Wt 75.8 kg
[~2018-12-29 20:53] MED LIST changes: +BACI28.34 TOP; +FLUT9.9S NASAL; +HYDR-4011 PO; +ONDA4TAB14 PO; +ZOLP5TAB PO
[2018-12-29 21:22] VITALS: BP 126/60; PULSE 84; RESP 18; Ht 157.5 cm; Wt 75.8 kg
[2018-12-29] MEDS ORDERED: morphine 4 MG/ML VIAL IV ONE (23:30)
[2018-12-30] MEDS ORDERED: SOD CHLORIDE 0.9% 100 ML ONE (00:48)
[2018-12-30] MEDS ORDERED: IODIXANOL LOCM 100 ML BTL ONE (00:48)
[2018-12-30] MEDS ORDERED: IODIXANOL LOCM 50 ML BTL ONE (00:49)
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
== END 2018-12-30 02:15 | disposition home or self-care (01) ==
LOC: FTE 20:53
DX: S52.602A Unspecified fracture of lower end of left ulna, initial encounter for closed fracture (principal); V49.49XA Driver injured in collision with other motor vehicles in traffic accident, initial encounter
CPT/HCPCS: 29125; 36415; 70450; 71260; 72125; 73030; 73080; 73090; 73110; 73130; 74177; 80053; 81025; 85025; 85610; 85730; 96374; J2270; Q9967; Z7502; Z7610

== ENCOUNTER 2019-01-31 05:19 | Emergency (ER) | payer OTHER ==
[~2019-01-31] VITALS: Ht 154.9 cm; Wt 73.9 kg
[2019-01-31 05:21] VITALS: BP 141/81; PULSE 74; RESP 18; Ht 154.9 cm; Wt 73.9 kg
== END 2019-01-31 07:26 | disposition home or self-care (01) ==
LOC: FTE 05:19
DX: S52.252A Displaced comminuted fracture of shaft of ulna, left arm, initial encounter for closed fracture (principal); R11.0 Nausea; R09.81 Nasal congestion; X58.XXXA Exposure to other specified factors, initial encounter; Y92.9 Unspecified place or not applicable
CPT/HCPCS: 29125; 73090; Z7502; Z7610